=== PATIENT | female | born 1995 | race Caucasian/White ===

== ENCOUNTER → 2017-04-01 | Outpatient (CLI) | payer BC ==
[~2017-04-01] MED LIST: AURALGAN14.8 ML RIGHT EAR; BIRTH CONTROL; CIPRO HC OTIC S10 ML RIGHT EAR; DEXTROAMP-AMPHE30 MG PO; ESCITALOPRAM OX10 MG PO; TOPAMAX50 MG PO
== END | disposition home or self-care (01) ==
LOC: NUC 12:49
DX: R10.11 Right upper quadrant pain (principal)
CPT/HCPCS: 78226; A9537